=== PATIENT | male | born 2000 | race Caucasian/White ===

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

== ENCOUNTER 2021-01-09 14:52 | Emergency (ER) | payer MEDICAID, SELFPAY ==
[2021-01-09 15:04] VITALS: BP 135/77; PULSE 84; RESP 20; TEMP 36.7; O2SAT 98
--- NOTE | 2021-01-09 15:30 | ED.DENTAL ---
HPI - Dental/Oral General Chief complaint: Dental/Oral Stated complaint: mouth swollen Time Seen by Provider: 01/09/21 15:30 Source: patient Mode of arrival: ambulatory Limitations: no limitations History of Present Illness HPI Narrative: 20-year-old managed previously well comes in today complaining of left jaw swelling that has been present since he woke today. Patient states that he has pain in the adjacent (lower) teeth. He denies difficulty swallowing, difficulty breathing, vomiting, fever. MD Complaint: tooth pain Location: Tooth # (20) Onset (ago): hour(s) (8) Duration: constant Severity: moderate Relieving factors: nothing Exacerbating factors: chewing and cold Context: history of dental caries Related Data Allergies Allergy/AdvReac Type Severity Reaction Status Date / Time Penicillins Allergy Anaphylaxis Verified 01/09/21 15:08 Review of Systems Review of Systems: All systems reviewed & are unremarkable except as noted in HPI and below Constitutional: Constitutional: Denies chills and Denies fever(s) ENT: Denies dysphagia, Denies nasal congestion and Denies sore throat Cardiovascular: Cardiovascular: Denies chest pain and Denies radiating jaw, neck or arm pain Respiratory: Respiratory: Denies cough and Denies dyspnea Gastrointestinal: Gastrointestinal: Denies nausea and Denies vomiting Integumentary/Breasts: Skin/Breast: Denies pruritus, Denies erythema and Denies rash Allergic/Immunologic: Allergic/Immunologic: Denies lip swelling, Denies throat swelling and Denies tongue swelling PMFSH Past Medical History Medical History (Updated 01/09/21 @ 15:42 by Carson Madden MD) No active medical problems Surgical History Surgical History (Updated 01/09/21 @ 15:38 by Carson Madden MD) History of strabismus surgery No pertinent past surgical history Social History Social History (Updated 01/09/21 @ 15:38 by Carson Madden MD) Smoking packs per day: 0.5 Smoking cigarettes per day: 10.0 Smoking status: Current every day smoker Tobacco type: cigarettes Alcohol intake: never Substance use: current Substance use type: marijuana Living arrangements: with family Exam Const: General: healthy appearing and alert Orientation/consciousness: patient oriented x3 Limitations: no limitations Other: Mild acute distress. HENMT: Head: normal to inspection Ears: external ears normal, EAC's normal and Abnormal EAC present General nose exam: Normal nares present Mouth: Yes moist mucous membranes Throat: posterior oropharynx normal Other: Decay at 20 and 29. Minimal gingival swelling. Swelling of the left cheek without induration or lying erythema. Eyes: Conjunctivae: conjunctivae normal Pupils: Equal, round and reactive pupils present EOM: EOMs intact bilaterally Neck: Neck: normal visual inspection and lymphadenopathy left anterior cervical mobile and shotty; nontender Resp: Effort & Inspection: normal respiratory effort and not labored Auscultation: clear to auscultation bilaterally, no rales, no rhonchi and no wheezes Cardio: Rate: regular rate Rhythm: regular rhythm Heart sounds: no murmurs Neuro: General: patient oriented x3, moves all extremities, no focal motor deficits and CN's II-XI intact bilaterally Cranial nerves: Yes Nystagmus not present Gait exam (Neuro): Normal gait present Extrem: General: normal to inspection and no clubbing, cyanosis or edema Psych: Appearance: grossly normal and well kempt Mental Status: mental status grossly normal Affect: normal affect Attitude: cooperative Thought content: Yes Normal thought content present Course Vital Signs Vital signs: Vital Signs Temperature 36.7 C 01/09/21 15:04 Pulse Rate 84 01/09/21 15:04 Respiratory Rate 20 01/09/21 15:04 Blood Pressure 135/77 01/09/21 15:04 Pulse Oximetry 98 01/09/21 15:04 Temperature 36.7 C 01/09/21 15:04 Pulse Rate 84 01/09/21 15:04 Respiratory Ra
[2021-01-09 15:49] VITALS: PULSE 80; RESP 20; O2SAT 99
== END 2021-01-09 15:52 | disposition home or self-care (01) ==
PROVIDERS: Emergency Provider Emergency Medicine
DX: K04.7 Periapical abscess without sinus (principal)
CPT/HCPCS: 99283